=== PATIENT | female | born 2000 | race Caucasian/White ===

== ENCOUNTER 2021-07-14 20:48 | Emergency (ER) | payer OTHER ==
[~2021-07-14] VITALS: Ht 160 cm; Wt 101.2 kg
[2021-07-14] MEDS ORDERED: ZOLOFT50 MG (21:20)
[2021-07-14] MEDS ORDERED: ARIPIPRAZOLE 20 MG (21:20)
[2021-07-14] MEDS ORDERED: CLONAZEPAM1 MG (21:21)
[2021-07-15] MEDS ORDERED: ALBUTEROL2.5 MG/3 M IH (01:49)
== END 2021-07-15 01:50 ==
LOC: ER 20:48
DX: R06.03 Acute respiratory distress (principal); R11.2 Nausea with vomiting, unspecified